=== PATIENT | male | born 1990 | race Asian ===

== ENCOUNTER → 2018-10-20 09:39 | Day surgery (SDC) | payer OTHER ==
[~2018-10-20 09:39] MED LIST: Acetaminophen TAB* 325 MG PO PRN; Buffered Lidocaine 1% SYRIN* 1 ML/SYRINGE INTRADERM ONE; Bupivacaine 0.25% SDV PF* 10 ML VIAL INJ ONE; Clindamycin 900 MG/D5W BAG(*) 900 MG/50 ML BAG IVPB ONE; Dexamethasone IV* 4 MG/ML 1 ML (4 MG) ONE; DiMENhydriNATE IV* 50 MG/ML VIAL IV PUSH PRN; DiMENhydriNATE IV* 50 MG/ML VIAL ONE; Famotidine IV* 10 MG/ML 2 ML (20 mg) IV ONE; Famotidine IV* 10 MG/ML 2 ML (20 mg) ONE; Ketorolac INJ* 30 MG/ML 1 ML VIAL ONE; Lactated Ringers 1000 ML Bag* 1,000 ML IV SCH; Midazolam* 1 MG/ML 5 ML VIAL (5 MG) ONE; Naloxone* 0.4 MG/ML 1 ML VIAL IV PRN; Ondansetron INJ* 2 MG/ML VIAL ONE; Propofol* 10 MG/ML 20 ML BTL ONE; fentaNYL* 50 MCG/ML 2 ML VIAL (100 MCG VIAL) ONE; oxyCODONE TAB* 5 MG TAB ONE; oxyCODONE TAB* 5 MG TAB PO PRN
[2018-10-20 14:46] VITALS: BP 118/71
--- NOTE | 2018-10-20 15:18 | OP ---
DATE OF OPERATION: 10/20/18 - [facility] DATE OF : 89 SURGEON: Zbigniew Galicia MD LEAD RADIATION THERAPIST: OLGA LIDIA Allen ANESTHESIOLOGIST: Dr. Miranda. ANESTHESIA: General. PRE-OP DIAGNOSIS: Left ring finger distal metacarpal shaft fracture. POST-OP DIAGNOSIS: Left ring finger distal metacarpal shaft fracture. OPERATIVE PROCEDURE: Open reduction and internal fixation of left ring finger metacarpal fracture. INDICATIONS: Zay has the fracture, it is rotated and shortened. We talked about his treatment options. He wanted to proceed with surgery. ESTIMATED BLOOD LOSS: 2 mL. COMPLICATIONS: None. FINDINGS: See above and below. DESCRIPTION OF PROCEDURE: Zay was seen in the preoperative holding area. The correct site, side, and procedure were identified. We came back to the operating room where the arm was prepped and draped in the usual fashion and a time-out was performed. The arm was exsanguinated with the Esmarch and the tourniquet was inflated to 225 mmHg. I went ahead and tried to close reducing the fracture, it would not move. I therefore made a 2-cm incision over the dorsum of the metacarpal. Dissection was carried down. Full thickness flaps were raised off the extensor tendon, paratenon. There was natural division in the tendon and this was utilized to gain access to the distal metacarpal, preserving the juncture. I raised subperiosteal flaps and I was able to free up all the bits of soft callus that were developing. I used the curette to clean up all the fracture edges until I could see the bone. All of the interposed soft tissue was debrided. [place] elevator was used to mobilize the fragments. I then used a very small termite clamp to clamp the bone in the reduced position, this was confirmed on mini C-arm fluoroscopy. I then placed one 2.0 mm lag screw off the [employer]s variable angle handset traversing the 2 fragments, this provided excellent compression. I then placed a second 1.5 mm lag screw proximal to that , this also had excellent bite and provided excellent compression. I checked the reduction and the screw lengths on mini C-arm fluoroscopy, everything looked very good. There was not a space for a plate, so I went ahead and irrigated out the wound. The soft tissue over the bone was closed with 5-0 Prolene suture. The little split that I had made in the tendon was closed with 5 -0 Prolene suture and skin was closed with 4-0 nylon. Marcaine was infiltrated. A volar splint placed out to the level of the PIP joints was applied to allow for some IP flexion and extension. He was woken up and taken to the recovery room in stable condition. [id number]/[facility] #: [id number] ALONSO
== END | disposition home or self-care (01) ==
LOC: OR 09:39
PROVIDERS: ATTEND Orthopaedic Surgery Hand Surgery
DX: S62.335A Displaced fracture of neck of fourth metacarpal bone, left hand, initial encounter for closed fracture (principal); V18.0XXA Pedal cycle driver injured in noncollision transport accident in nontraffic accident, initial encounter; Y93.55 Activity, bike riding; Y92.9 Unspecified place or not applicable
CPT/HCPCS: 76000; A9270-GY; C1713; J1100; J1240; J1885; J2250; J2405; J2704; J3010; J3490